=== PATIENT | male | born 1945 | race Caucasian/White ===

== ENCOUNTER 2023-10-22 22:02 | Emergency (ER) | payer OTHER ==
[~2023-10-22] VITALS: Ht 182.9 cm; Wt 85.0 kg
[2023-10-22 22:08] VITALS: BP 145/89; PULSE 74; RESP 16; TEMP 97.9; O2SAT 99
== END 2023-10-23 00:24 | disposition left against medical advice (07) ==
LOC: ER 22:02
DX: R53.1 Weakness (principal); Z53.21 Procedure and treatment not carried out due to patient leaving prior to being seen by health care provider